=== PATIENT | male | born 1935 | race Caucasian/White ===

== ENCOUNTER 2016-08-23 11:31 | Inpatient (IN) | payer MEDICARE, BC ==
[~2016-08-23] VITALS: Ht 172.7 cm; Wt 110.8 kg
[~2016-08-23 11:31] MED LIST: ARICEPT10 MG PO; ASPIRIN 32325 MG/TA1 PO; BUSPAR DIVIDOSE15 MG PO; COLACE 100100 MG/CAP PO; CYMBALTA 60MG60 MG PO; DESYREL 50MG50 MG PO; GLUCOPHAGE500 MG/TAB PO; KLONOPIN 0.5MG0.5 MG PO; LOPRESSOR 225 MG/TAB PO; MICARDIS20 MG PO; MINIPRESS 1M1 MG/CAP PO; NAMENDA 10MG TA10 MG PO; NAPROSYN500 MG PO; NITROSTAT0.4 MG/TAB SL; NORCO 325 MG-7.1 TAB PO; PRILOSEC10 MG PO; VESICARE 5MG5 MG PO; WELLBUTRIN 75MG75 MG PO; ZOCOR 40MG40 MG PO
[2016-08-23 12:13] LABS: BASO # 0.1 (0.0-0.2); BASO % 0.5 % (0.0-2.0); EOS # 0.2 (0.0-0.7); EOS % 1.5 % (0-4.0); GRAN # 5.6 (1.4-6.5); GRAN % 54.9 % (42.2-75.2); HEMATOCRIT 40.4 % (42.0-52.0); HEMOGLOBIN 13.4 g/dl (13.5-18.0); LYMPH # 3.5 (1.2-3.4); MEAN CELL VOLUME 91 fl (80.0-100.0); MEAN CORPUSCULAR HEMOGLOBIN 30 pg (27.0-31.0); MEAN CORPUSCULAR HGB CONC 33 g/dl (33.0-37.0); MEAN PLATELET VOLUME 8.9 fl (7.4-10.4); MONO # 0.9 (0.1-0.6); MONO % 8.6 % (1.7-9.3); PLATELET COUNT 203 K/mm3 (130-400); RED BLOOD COUNT 4.42 M/mm3 (4.20-5.60); REDCELL DISTRIBUTION WIDTH-CV 13.3 % (11.5-14.5); WHITE BLOOD COUNT 10.2 K/mm3 (4.8-10.8)
[2016-08-23 12:17] LABS: ADJUSTED CALCIUM 9.2 mg/dL (8.4-10.2); ALANINE AMINOTRANSFERASE 26 U/L (21-72); ALBUMIN 4.1 gm/dL (3.5-5.0); ALKALINE PHOSPHATASE 68 U/L (50-136); ANION GAP 12 mmol/L (7-16); BILIRUBIN,TOTAL 0.6 mg/dL (0.0-1.0); BLOOD UREA NITROGEN 12 mg/dL (9-20); CALCIUM 9.3 mg/dL (8.4-10.2); CARBON DIOXIDE 25 mmol/L (22-30); CHLORIDE 101 mmol/L (98-107); CREATINE KINASE 55 U/L (55-170); GLUCOSE 100 mg/dL (74-106); LIPASE 295 U/L (23-300); POTASSIUM 4.3 mmol/L (3.4-5.0); SODIUM 138 mmol/L (137-145); TOTAL PROTEIN 7.1 gm/dL (6.4-8.2)
[2016-08-23 12:30] LABS: B-TYPE NATRIURETIC PEPTIDE 68 pg/mL (0-450)
[2016-08-23 12:36] LABS: TROPONIN-I < 0.012 ng/mL (0.000-0.034)
[2016-08-23 12:42] LABS: INR 0.9 (0.8-3.0)
[2016-08-23] MEDS ORDERED: GLUCOPHAGE500 MG/TAB PO (14:02)
[2016-08-23] MEDS ORDERED: FLOMAX 0.40.4 MG/CAP PO (15:15)
[2016-08-23 16:54] VITALS: BP 124/65; PULSE 71; TEMP 98.1
[2016-08-23 19:34] VITALS: BP 115/64; PULSE 76; TEMP 98.4
[2016-08-23 19:59] LABS: CHOLESTEROL 115 mg/dL (120-200); HDL CHOLESTEROL 37 mg/dL; LDL CHOLESTEROL 53 mg/dL; TRIGLYCERIDE 123 mg/dL
[2016-08-24] VITALS (246 sets, daily range): BP systolic 92–155; BP diastolic 51–92; PULSE 62–82; TEMP 97.4–98.5; O2SAT 92–97
[2016-08-24 08:02] LABS: BASO % 0.7 % (0.0-2.0); EOS # 0.2 (0.0-0.7); EOS % 2.7 % (0-4.0); GRAN # 2.8 (1.4-6.5); GRAN % 46.9 % (42.2-75.2); HEMATOCRIT 38.8 % (42.0-52.0); HEMOGLOBIN 12.6 g/dl (13.5-18.0); LYMPH # 2.3 (1.2-3.4); MEAN CELL VOLUME 93 fl (80.0-100.0); MEAN CORPUSCULAR HEMOGLOBIN 30 pg (27.0-31.0); MEAN CORPUSCULAR HGB CONC 33 g/dl (33.0-37.0); MEAN PLATELET VOLUME 9.2 fl (7.4-10.4); MONO # 0.6 (0.1-0.6); MONO % 10.4 % (1.7-9.3); PLATELET COUNT 205 K/mm3 (130-400); RED BLOOD COUNT 4.18 M/mm3 (4.20-5.60); REDCELL DISTRIBUTION WIDTH-CV 13.2 % (11.5-14.5)
[2016-08-24 08:17] LABS: ANION GAP 8 mmol/L (7-16); BLOOD UREA NITROGEN 11 mg/dL (9-20); CALCIUM 9.1 mg/dL (8.4-10.2); CARBON DIOXIDE 28 mmol/L (22-30); CHLORIDE 104 mmol/L (98-107); CREATININE, serum 1.11 mg/dL (0.66-1.25); GLUCOSE 94 mg/dL (74-106); POTASSIUM 4.5 mmol/L (3.4-5.0); SODIUM 140 mmol/L (137-145)
[2016-08-24 10:11] LABS: TROPONIN-I < 0.012 ng/mL (0.000-0.034)
[2016-08-25] VITALS (672 sets, daily range): BP systolic 73–143; BP diastolic 43–77; PULSE 56–66; TEMP 97–98.4; O2SAT 90–99
[2016-08-25 05:36] LABS: HEMATOCRIT 38.6 % (42.0-52.0); HEMOGLOBIN 12.6 g/dl (13.5-18.0); MEAN CELL VOLUME 92 fl (80.0-100.0); MEAN CORPUSCULAR HEMOGLOBIN 30 pg (27.0-31.0); MEAN CORPUSCULAR HGB CONC 33 g/dl (33.0-37.0); MEAN PLATELET VOLUME 8.5 fl (7.4-10.4); PLATELET COUNT 183 K/mm3 (130-400); RED BLOOD COUNT 4.18 M/mm3 (4.20-5.60); REDCELL DISTRIBUTION WIDTH-CV 13.2 % (11.5-14.5); WHITE BLOOD COUNT 6.4 K/mm3 (4.8-10.8)
[2016-08-25 05:50] LABS: CALCIUM 8.9 mg/dL (8.4-10.2); CREATININE, serum 0.96 mg/dL (0.66-1.25); POTASSIUM 4.8 mmol/L (3.4-5.0)
[2016-08-25] MEDS ORDERED: PLAVIX 75MG TAB75 MG PO (10:11)
== END 2016-08-25 11:44 | disposition home or self-care (01) | DRG 247 ==
LOC: COL.ER 11:31 → MEDICAL 13:47 → ICU 08-24 19:50
PROVIDERS: Emergency Medicine; Internal Medicine; Internal Medicine Interventional Cardiology
PROC: 027034Z Dilation of Coronary Artery, One Artery with Drug-eluting Intraluminal Device, Percutaneous Approach (ICD-10-PCS; principal; 2016-08-24)
PROC: B2111ZZ Fluoroscopy of Multiple Coronary Arteries using Low Osmolar Contrast (ICD-10-PCS; 2016-08-24)
PROC: B2151ZZ Fluoroscopy of Left Heart using Low Osmolar Contrast (ICD-10-PCS; 2016-08-24)
PROC: 4A023N7 Measurement of Cardiac Sampling and Pressure, Left Heart, Percutaneous Approach (ICD-10-PCS; 2016-08-24)
DX: I25.110 Atherosclerotic heart disease of native coronary artery with unstable angina pectoris (principal); I10 Essential (primary) hypertension; E11.9 Type 2 diabetes mellitus without complications; Z95.5 Presence of coronary angioplasty implant and graft; Z87.891 Personal history of nicotine dependence; G31.84 Mild cognitive impairment of uncertain or unknown etiology
CPT/HCPCS: 99222-AI; 99232-AI; 99239; C1725; C1760; C1769; C1874; C1887; C1894; C9600; J0583; J2250; J3010; J7030; Q9967

== ENCOUNTER → 2016-10-24 | Outpatient (CLI) | payer MEDICARE, BC ==
[~2016-10-24] MED LIST changes: +FLOMAX 0.40.4 MG/CAP PO; +PLAVIX 75MG TAB75 MG PO
== END ==
LOC: BHSO 13:38
DX: F33.42 Major depressive disorder, recurrent, in full remission (principal)

== ENCOUNTER → 2017-01-23 | Outpatient (CLI) | payer MEDICARE, BC | LOC: BHSO 14:17 | DX: F43.10 Post-traumatic stress disorder, unspecified (principal) ==

== ENCOUNTER → 2017-04-26 | Outpatient (CLI) | payer MEDICARE, BC | LOC: BHSO 14:53 | DX: F31.81 Bipolar II disorder (principal) ==

== ENCOUNTER → 2017-07-26 | Outpatient (CLI) | payer MEDICARE, BC | LOC: BHSO 14:04 | DX: F33.42 Major depressive disorder, recurrent, in full remission (principal) ==

== ENCOUNTER → 2017-10-17 | Outpatient (CLI) | payer MEDICARE, BC | LOC: COL.RAD 09:11 | DX: I65.23 Occlusion and stenosis of bilateral carotid arteries (principal); R41.89 Other symptoms and signs involving cognitive functions and awareness | CPT/HCPCS: Q9967 ==

== ENCOUNTER → 2017-10-25 | Outpatient (CLI) | payer MEDICARE, BC ==
[~2017-10-25] MED LIST changes: +ANTIVERT 25MG25 MG PO; +RAPAFLO8 MG PO
== END ==
LOC: BHSO 13:34
DX: F33.42 Major depressive disorder, recurrent, in full remission (principal)
CPT/HCPCS: G0463

== ENCOUNTER 2017-10-29 14:23 | Emergency (ER) | payer MEDICARE, BC ==
[~2017-10-29] VITALS: Ht 172.7 cm; Wt 115.5 kg
[~2017-10-29 14:23] MED LIST changes: -ANTIVERT 25MG25 MG PO; -RAPAFLO8 MG PO
[2017-10-29 14:29] VITALS: TEMP 98.3
[2017-10-29] MEDS ORDERED: RAPAFLO8 MG PO (15:19)
[2017-10-29 15:35] LABS: BASO % 0.4 % (0.0-2.0); EOS # 0.2 (0.0-0.7); HEMATOCRIT 41.6 % (42.0-52.0); HEMOGLOBIN 13.6 g/dl (13.5-18.0); LYMPH # 2.5 (1.2-3.4); LYMPH % 33.3 % (20.0-51.0); MEAN CELL VOLUME 94 fl (80.0-100.0); MEAN CORPUSCULAR HEMOGLOBIN 31 pg (27.0-31.0); MEAN CORPUSCULAR HGB CONC 33 g/dl (33.0-37.0); MEAN PLATELET VOLUME 8.4 fl (7.4-10.4); MONO # 0.7 (0.1-0.6); MONO % 9.9 % (1.7-9.3); PLATELET COUNT 223 K/mm3 (130-400); RED BLOOD COUNT 4.45 M/mm3 (4.20-5.60); REDCELL DISTRIBUTION WIDTH-CV 13.2 % (11.5-14.5)
[2017-10-29 15:38] VITALS: BP 135/80
[2017-10-29 15:44] LABS: ALANINE AMINOTRANSFERASE 25 U/L (21-72); ALBUMIN 4.1 gm/dL (3.5-5.0); ALKALINE PHOSPHATASE 63 U/L (50-136); ANION GAP 10 mmol/L (7-16); AST,SGOT 16 U/L (15-37); BILIRUBIN,TOTAL 0.2 mg/dL (0.0-1.0); BLOOD UREA NITROGEN 17 mg/dL (9-20); CARBON DIOXIDE 27 mmol/L (22-30); CHLORIDE 106 mmol/L (98-107); GLUCOSE 112 mg/dL (74-106); POTASSIUM 4.9 mmol/L (3.4-5.0); SODIUM 143 mmol/L (137-145); TOTAL PROTEIN 6.9 gm/dL (6.4-8.2)
[2017-10-29 16:07] LABS: TROPONIN-I < 0.012 ng/mL (0.000-0.034)
[2017-10-29] MEDS ORDERED: ANTIVERT 25MG25 MG PO (17:02)
[2017-10-29 17:16] VITALS: PULSE 77
== END 2017-10-29 17:17 | disposition home or self-care (01) ==
LOC: COL.ER 14:23
PROVIDERS: Emergency Medicine
DX: R42 Dizziness and giddiness (principal); E11.9 Type 2 diabetes mellitus without complications; I10 Essential (primary) hypertension; I25.10 Atherosclerotic heart disease of native coronary artery without angina pectoris; Z86.79 Personal history of other diseases of the circulatory system; Z95.5 Presence of coronary angioplasty implant and graft; Z98.890 Other specified postprocedural states; Z79.84 Long term (current) use of oral hypoglycemic drugs; Z79.82 Long term (current) use of aspirin

== ENCOUNTER 2018-01-22 10:59 | Day surgery (SDC) | payer MEDICARE, BC ==
[2018-01-22] VITALS (9 sets, daily range): BP systolic 96–128; BP diastolic 52–83; PULSE 68–87; TEMP 97.5–98.3
[~2018-01-22] VITALS: Ht 172.7 cm; Wt 114.1 kg
[~2018-01-22 10:59] MED LIST changes: +ANTIVERT 25MG25 MG PO; +RAPAFLO8 MG PO
[2018-01-22] MEDS ORDERED: FLOMAX 0.40.4 MG/CAP PO (12:21)
[2018-01-22] MEDS ORDERED: LOPRESSOR 225 MG/TAB PO (12:26)
[2018-01-22] MEDS ORDERED: GLUCOPHAGE1000 MG PO (12:26)
[2018-01-22] MEDS ORDERED: ARICEPT10 MG PO (12:27)
[2018-01-22] MEDS ORDERED: BUSPAR 30MG30 MG/TAB PO (12:28)
[2018-01-22] MEDS ORDERED: KLONOPIN 0.5MG0.5 MG PO (12:29)
[2018-01-22] MEDS ORDERED: MICARDIS20 MG PO (12:29)
[2018-01-22] MEDS ORDERED: MINIPRESS 1M1 MG/CAP PO (12:31)
[2018-01-22] MEDS ORDERED: CYMBALTA 60MG60 MG PO (12:32)
[2018-01-22] MEDS ORDERED: DESYREL 50MG50 MG PO (12:33)
[2018-01-22] MEDS ORDERED: ZOCOR 40MG40 MG PO (12:34)
[2018-01-22] MEDS ORDERED: NAMENDA 10MG TA10 MG PO (12:35)
[2018-01-23 03:56] VITALS: BP 109/53; PULSE 70; TEMP 98
[2018-01-23 07:35] VITALS: BP 108/52; PULSE 77; TEMP 98.9
[2018-01-23 11:34] VITALS: BP 112/70; PULSE 67; TEMP 98.6
[2018-01-23 15:34] VITALS: BP 106/67; PULSE 75; TEMP 98.2
[2018-01-23 19:17] VITALS: BP 135/61; PULSE 80; TEMP 98.1
[2018-01-24 00:07] VITALS: BP 130/62; PULSE 82; TEMP 98.4
[2018-01-24 03:38] VITALS: BP 123/58; PULSE 70; TEMP 98.2
[2018-01-24 08:26] VITALS: BP 108/52; PULSE 93; TEMP 99.2
== END 2018-01-24 10:28 | disposition home or self-care (01) ==
LOC: SDCO 10:59 → SURG 17:00 → SDCO 01-24 10:28
DX: N40.1 Benign prostatic hyperplasia with lower urinary tract symptoms (principal); N13.8 Other obstructive and reflux uropathy; N39.43 Post-void dribbling; G47.33 Obstructive sleep apnea (adult) (pediatric); I25.10 Atherosclerotic heart disease of native coronary artery without angina pectoris; J44.9 Chronic obstructive pulmonary disease, unspecified; E11.9 Type 2 diabetes mellitus without complications; Z79.02 Long term (current) use of antithrombotics/antiplatelets; Z79.899 Other long term (current) drug therapy; Z79.82 Long term (current) use of aspirin; G30.9 Alzheimer's disease, unspecified; F02.80 Dementia in other diseases classified elsewhere, unspecified severity, without behavioral disturbance, psychotic disturbance, mood disturbance, and anxiety; Z95.5 Presence of coronary angioplasty implant and graft
CPT/HCPCS: OP; J0690; J2175; J2270; J2405; J2704; J3010; J3480

== ENCOUNTER → 2018-06-13 | Outpatient (CLI) | payer MEDICARE, BC ==
[~2018-06-13] MED LIST changes: +BUSPAR 30MG30 MG/TAB PO; +GLUCOPHAGE1000 MG PO
== END ==
LOC: BHSO 14:21
DX: F33.42 Major depressive disorder, recurrent, in full remission (principal)
CPT/HCPCS: G0463

== ENCOUNTER 2018-06-20 11:13 | Emergency (ER) | payer MEDICARE, BC ==
[~2018-06-20] VITALS: Ht 172.7 cm; Wt 115.0 kg
[2018-06-20 11:16] VITALS: TEMP 97.6
[2018-06-20 11:49] LABS: BASO % 0.4 % (0.0-2.0); EOS # 0.2 (0.0-0.7); EOS % 2.3 % (0-4.0); GRAN # 3.7 (1.4-6.5); GRAN % 51.7 % (42.2-75.2); HEMATOCRIT 42.1 % (42.0-52.0); HEMOGLOBIN 14.2 g/dl (13.5-18.0); LYMPH # 2.6 (1.2-3.4); LYMPH % 36.3 % (20.0-51.0); MEAN CELL VOLUME 91 fl (80.0-100.0); MEAN CORPUSCULAR HEMOGLOBIN 31 pg (27.0-31.0); MEAN CORPUSCULAR HGB CONC 34 g/dl (33.0-37.0); MEAN PLATELET VOLUME 9.1 fl (7.4-10.4); MONO # 0.6 (0.1-0.6); PLATELET COUNT 213 K/mm3 (130-400); RED BLOOD COUNT 4.65 M/mm3 (4.20-5.60); REDCELL DISTRIBUTION WIDTH-CV 13.4 % (11.5-14.5)
[2018-06-20 11:55] LABS: ALANINE AMINOTRANSFERASE 22 U/L (21-72); ALBUMIN 3.8 gm/dL (3.5-5.0); ALKALINE PHOSPHATASE 55 U/L (50-136); ANION GAP 8 mmol/L (7-16); AST,SGOT 15 U/L (15-37); BILIRUBIN,TOTAL 0.3 mg/dL (0.0-1.0); BLOOD UREA NITROGEN 11 mg/dL (9-20); CALCIUM 8.8 mg/dL (8.4-10.2); CARBON DIOXIDE 24 mmol/L (22-30); CHLORIDE 107 mmol/L (98-107); CREATININE, serum 0.95 mg/dL (0.66-1.25); GLUCOSE 111 mg/dL (74-106); LIPASE 184 U/L (23-300); POTASSIUM 4.6 mmol/L (3.4-5.0); SODIUM 139 mmol/L (137-145); TOTAL PROTEIN 6.7 gm/dL (6.4-8.2)
[2018-06-20 12:02] LABS: C-REACTIVE PROTEIN < 0.5 mg/dL (0.0-0.9)
[2018-06-20 12:14] LABS: TROPONIN-I < 0.012 ng/mL (0.000-0.034)
[2018-06-20] MEDS ORDERED: DOXYCYCLINE 10100 MG PO ×2 (15:08→15:48)
[2018-06-20 15:13] LABS: COLLECTION METHOD CLEAN CATCH
[2018-06-20 15:29] LABS: MUCOUS Present /lpf; PH 6 (5-8); SQUAMOUS EPITHELIAL 0-2 /hpf; URINE APPEARANCE Clear; URINE BACTERIA None Seen /hpf; URINE BILIRUBIN Negative (NEGATIVE); URINE BLOOD Negative (NEGATIVE); URINE COLOR Yellow; URINE GLUCOSE Negative (NEGATIVE); URINE KETONE Negative (NEGATIVE); URINE LEUKOCYTE ESTERASE Negative (NEGATIVE); URINE NITRATE Negative (NEGATIVE); URINE PROTEIN(semi-quant) Negative (NEGATIVE); URINE RBC 0-2 /hpf; URINE UROBILINOGEN Negative (NEGATIVE)
[2018-06-20 15:50] VITALS: BP 143/87; PULSE 61
== END 2018-06-20 15:50 | disposition home or self-care (01) ==
LOC: COL.ER 11:13
PROVIDERS: Emergency Medicine
DX: R05 Cough (principal); R10.32 Left lower quadrant pain; E11.9 Type 2 diabetes mellitus without complications; I10 Essential (primary) hypertension; F03.90 Unspecified dementia, unspecified severity, without behavioral disturbance, psychotic disturbance, mood disturbance, and anxiety; I25.10 Atherosclerotic heart disease of native coronary artery without angina pectoris; Z98.890 Other specified postprocedural states; Z79.84 Long term (current) use of oral hypoglycemic drugs
CPT/HCPCS: J7040; Q9967

== ENCOUNTER 2018-10-31 09:53 | Observation (INO) | payer MEDICARE, BC ==
[2018-10-31] VITALS (12 sets, daily range): BP systolic 140–173; BP diastolic 67–98; PULSE 61–79; TEMP 97.5–98.8
[~2018-10-31] VITALS: Ht 172.7 cm; Wt 111.1 kg
[~2018-10-31 09:53] MED LIST changes: -BUSPAR 30MG30 MG/TAB PO; +DOXYCYCLINE 10100 MG PO; -GLUCOPHAGE1000 MG PO; +MICARDIS40 MG PO
[2018-10-31 10:20] LABS: BASO % 0.4 % (0.0-2.0); EOS # 0.2 (0.0-0.7); EOS % 2.1 % (0-4.0); GRAN # 4.4 (1.4-6.5); GRAN % 63.5 % (42.2-75.2); HEMATOCRIT 42.3 % (42.0-52.0); HEMOGLOBIN 13.9 g/dl (13.5-18.0); LYMPH # 1.7 (1.2-3.4); LYMPH % 24.1 % (20.0-51.0); MEAN CELL VOLUME 92 fl (80.0-100.0); MEAN CORPUSCULAR HEMOGLOBIN 30 pg (27.0-31.0); MEAN CORPUSCULAR HGB CONC 33 g/dl (33.0-37.0); MEAN PLATELET VOLUME 8.8 fl (7.4-10.4); MONO # 0.7 (0.1-0.6); MONO % 9.6 % (1.7-9.3); PLATELET COUNT 204 K/mm3 (130-400); REDCELL DISTRIBUTION WIDTH-CV 13.1 % (11.5-14.5)
[2018-10-31] MEDS ORDERED: ASPIRIN 32325 MG/TAB PO (10:22)
[2018-10-31] MEDS ORDERED: DULCOLAX STOOL100 MG PO (10:24)
[2018-10-31] MEDS ORDERED: VESICARE 5MG5 MG PO (10:26)
[2018-10-31 10:30] LABS: ALANINE AMINOTRANSFERASE 11 U/L (21-72); ALBUMIN 3.9 gm/dL (3.5-5.0); ALKALINE PHOSPHATASE 69 U/L (50-136); ANION GAP 9 mmol/L (7-16); AST,SGOT 13 U/L (15-37); BILIRUBIN,TOTAL 0.2 mg/dL (0.0-1.0); BLOOD UREA NITROGEN 14 mg/dL (9-20); CALCIUM 8.8 mg/dL (8.4-10.2); CARBON DIOXIDE 28 mmol/L (22-30); CHLORIDE 103 mmol/L (98-107); CREATININE, serum 0.88 mg/dL (0.66-1.25); GLUCOSE 175 mg/dL (74-106); LIPASE 442 U/L (23-300); POTASSIUM 3.9 mmol/L (3.4-5.0); SODIUM 139 mmol/L (137-145); TOTAL PROTEIN 6.7 gm/dL (6.4-8.2)
[2018-10-31 10:46] LABS: INR 0.9 (0.8-3.0); PROTHROMBIN TIME 10.1 SECONDS (9.7-12.8)
[2018-10-31 11:22] LABS: TROPONIN-I < 0.012 ng/mL (0.000-0.035)
--- NOTE | 2018-10-31 14:39 | NUR ---
Patient is getting ready to go for a heart catheterization. Consent signed and on chart. The nurse from the [facility] is here getting patient ready and is going to be taking the patient. Patient has no family at bedside. IVF's to straight tubing at 30ml/hr. No other changes at this time.
[2018-10-31] MEDS ORDERED: NORCO 325 MG-7.1 TAB PO (14:49)
--- NOTE | 2018-10-31 15:14 | NUR ---
ALL MEDICATIONS GIVEN WITH VERBAL ORDER AND READBACK WITH MD. SEE MERGE FOR ALL MEDICATION ADMIN TIMES. SEE MERGE FOR ALL RASS ASSESSMENTS DURING AND POST PROCEDURE. CHEST PAIN AT A 9/10.
--- NOTE | 2018-10-31 16:30 | NUR ---
Patient is back from his heart cath. He is alert and oriented. Right groin site is C/D/I, skin is soft and supple. No edema noted. CMS intact to RLE. Explained that he has to lay flat for 2 hours. He continues to have to pain to his left chest and left upper quadrant. He did not want anything for pain at this time. Denies nausea. Hospitalist is seeing him at this time. No other changes at this time. Call light within reach.
--- NOTE | 2018-10-31 18:30 | NUR ---
Patient started to have increased pain to abdomen and complaints of a headache. [place] given, it is his home dose so he did not thinkg it would be enough. Denies nausea. Called for a dose of additional pain medication as well. 1mg of morhpine given as well. Patient stated is also very hungry and thought that might be causing the headache. No pain to right groin site. Dressing is C/D/I, skin is soft and supple. CMS intact to RLE. Patients flat time is done. No other changes at this time. Call light within reach.
--- NOTE | 2018-10-31 19:30 | NUR ---
Shift assessment complete. Pt resting in bed, awake, a&o, cooperative c cares. Pt reports continued pain to L back/shoulder et L chest, rated "5/10" at this time, reports recent MS admin "helped"; will continue to monitor. Heart cath site to R groin noted, s edema/drainage or other complication; gauze/tegaderm dressing C/D/I. INT patent. Tele in place. Pt denies further needs at this time. Call light in reach, bed alarm on. Will monitor.
[2018-11-01 04:44] VITALS: BP 142/73; PULSE 69; TEMP 98.1
[2018-11-01 07:15] LABS: HEMATOCRIT 41.3 % (42.0-52.0); HEMOGLOBIN 13.5 g/dl (13.5-18.0); MEAN CELL VOLUME 91 fl (80.0-100.0); MEAN CORPUSCULAR HEMOGLOBIN 30 pg (27.0-31.0); MEAN CORPUSCULAR HGB CONC 33 g/dl (33.0-37.0); MEAN PLATELET VOLUME 9.1 fl (7.4-10.4); PLATELET COUNT 217 K/mm3 (130-400); RED BLOOD COUNT 4.54 M/mm3 (4.20-5.60); REDCELL DISTRIBUTION WIDTH-CV 13.2 % (11.5-14.5)
[2018-11-01 07:18] LABS: ALBUMIN 3.6 gm/dL (3.5-5.0); BILIRUBIN,TOTAL 0.3 mg/dL (0.0-1.0); CALCIUM 8.7 mg/dL (8.4-10.2); CREATININE, serum 0.84 mg/dL (0.66-1.25); POTASSIUM 4.1 mmol/L (3.4-5.0); TOTAL PROTEIN 6.3 gm/dL (6.4-8.2)
--- NOTE | 2018-11-01 07:22 | NUR ---
Pt resting in bed, condition unchanged. Pt has had continued c/o L back et chest pain this shift, rated 3/10 at best to 9/10 at worst. Pain moderately well controlled c PRN pain meds upon pt request. Pt has otherwise rested int c very few needs this shift. Denies needs at this time. Call light in reach. Bedside shift report given to Immanuel NAM to assume pt cares.
--- NOTE | 2018-11-01 08:00 | NUR ---
Assessment completed, alert/oriented, vital signs stable, continues to report moderate to severe intermittent left sided chest and back pain, [place] [facility] and Morphine being used with some releif noted, he reports the pain comes and goes and is somtimes brought on by position changes and other times comes on when he is just laying there, heart RRR/ SR on tele, distal pulses are palpable, lungs CTA/ no resp.difficulty noted, right groin/ femoral cath access site is soft with no signs of hematoma or bleeding, he is ordering himself breakfast, denies other needs at this time
[2018-11-01 08:51] VITALS: BP 136/60; BP 163/87; PULSE 100; PULSE 74; TEMP 97.5; TEMP 98
[2018-11-01 12:08] VITALS: BP 138/85; PULSE 72; TEMP 97.8
[2018-11-01] MEDS ORDERED: GLUCOPHAGE500 MG/TAB PO (12:26)
[2018-11-01 12:33] VITALS: PULSE 70
--- NOTE | 2018-11-01 13:55 | NUR ---
SW met with patient and nephew about discharge. Patient lives at home alone but his nephew visits everyday and is able to stay with patient if needed. Patient's PCP is Dr Jackson and he obtains prescriptions from [facility] in [place]. Patient does not use any home health services or DME. Patient has a DPOA in EMR. SW does not anticipate any discharge needs.
[2018-11-01] MEDS ORDERED: PROTONIX 40MG T40 MG PO (17:04)
--- NOTE | 2018-11-01 17:46 | NUR ---
discharge instructions reviewed with the patient, expalined CT chest was negative for PE, instructed to follow up with PCP and Cardiology as scheuled, IV and tele removed, leaving with a friend, script for Protonix sent to pharmacy and medication education given, I personally escorted them out the door
== END 2018-11-01 17:51 | disposition home or self-care (01) ==
LOC: COL.ER 09:53 → MEDICAL 12:39
PROVIDERS: Emergency Medicine; Nurse Practitioner Family; ADMIT Hospitalist
DX: I25.10 Atherosclerotic heart disease of native coronary artery without angina pectoris (principal); M89.8X1 Other specified disorders of bone, shoulder; E11.9 Type 2 diabetes mellitus without complications; I10 Essential (primary) hypertension; N40.0 Benign prostatic hyperplasia without lower urinary tract symptoms; F32.9 Major depressive disorder, single episode, unspecified; I73.9 Peripheral vascular disease, unspecified; G47.33 Obstructive sleep apnea (adult) (pediatric); Z79.82 Long term (current) use of aspirin; Z79.84 Long term (current) use of oral hypoglycemic drugs; Z87.891 Personal history of nicotine dependence; Z86.73 Personal history of transient ischemic attack (TIA), and cerebral infarction without residual deficits; G31.84 Mild cognitive impairment of uncertain or unknown etiology; Z82.49 Family history of ischemic heart disease and other diseases of the circulatory system
CPT/HCPCS: C1760; C1894; G0378; J1644; J2250; J2270; J3010; J7030; Q9967

== ENCOUNTER → 2018-12-19 | Outpatient (CLI) | payer MEDICARE, BC ==
[~2018-12-19] MED LIST changes: +ASPIRIN 32325 MG/TAB PO; +DULCOLAX STOOL100 MG PO; +PROTONIX 40MG T40 MG PO
== END ==
LOC: COL.RAD 07:30
DX: Z01.812 Encounter for preprocedural laboratory examination (principal); E11.69 Type 2 diabetes mellitus with other specified complication; I71.4 Abdominal aortic aneurysm, without rupture; M46.96 Unspecified inflammatory spondylopathy, lumbar region; M51.36 Other intervertebral disc degeneration, lumbar region; N20.0 Calculus of kidney; N28.1 Cyst of kidney, acquired; Z98.1 Arthrodesis status
CPT/HCPCS: Q9967

== ENCOUNTER → 2018-12-19 | Outpatient (CLI) | payer MEDICARE, BC | LOC: BHSO 13:07 | DX: F43.10 Post-traumatic stress disorder, unspecified (principal) | CPT/HCPCS: G0463 ==

== ENCOUNTER → 2018-12-22 | Outpatient (CLI) | payer MEDICARE, BC | LOC: COL.RAD 10:00 | DX: K22.8 Other specified diseases of esophagus (principal) ==

== ENCOUNTER → 2019-05-13 | Outpatient (CLI) | payer MEDICARE, BC | LOC: COL.VAS 12:31 | DX: I25.118 Atherosclerotic heart disease of native coronary artery with other forms of angina pectoris (principal); R79.89 Other specified abnormal findings of blood chemistry ==

== ENCOUNTER → 2019-06-19 | Outpatient (CLI) | payer MEDICARE, BC | LOC: BHSO 13:25 | DX: F43.10 Post-traumatic stress disorder, unspecified (principal) | CPT/HCPCS: G0463 ==

== ENCOUNTER → 2020-04-15 | Outpatient (CLI) | payer MEDICARE, BC ==
[~2020-04-15] MED LIST changes: +COREG12.5 MG PO; +PERCOCET 325 MG1 TA2 PO; +SPIRIVA RE2.5 MCG/Ac IH
== END ==
LOC: COL.RAD 11:49
DX: G31.9 Degenerative disease of nervous system, unspecified (principal); J32.9 Chronic sinusitis, unspecified; I65.23 Occlusion and stenosis of bilateral carotid arteries
CPT/HCPCS: A9585

== ENCOUNTER → 2020-06-09 | Outpatient (CLI) | payer MEDICARE, BC | LOC: BHSO 14:24 | DX: F43.10 Post-traumatic stress disorder, unspecified (principal) | CPT/HCPCS: G0463 ==

== ENCOUNTER 2021-03-28 02:18 | Emergency (ER) | payer MEDICARE, BC ==
[~2021-03-28] VITALS: Ht 172.7 cm; Wt 96.4 kg
[2021-03-28 02:27] VITALS: TEMP 98.3
[2021-03-28 03:16] LABS: BASO % 0.3 % (0.0-2.0); EOS # 0.1 (0.0-0.7); EOS % 1.5 % (0-4.0); GRAN % 62.5 % (42.2-75.2); HEMATOCRIT 40.6 % (42.0-52.0); HEMOGLOBIN 13.1 g/dl (13.5-18.0); LYMPH # 2.4 (1.2-3.4); LYMPH % 25.2 % (20.0-51.0); MEAN CELL VOLUME 94 fl (80.0-100.0); MEAN CORPUSCULAR HEMOGLOBIN 31 pg (27.0-31.0); MEAN CORPUSCULAR HGB CONC 32 g/dl (33.0-37.0); MEAN PLATELET VOLUME 8.8 fl (7.4-10.4); PLATELET COUNT 208 K/mm3 (130-400)
[2021-03-28 03:28] LABS: ALANINE AMINOTRANSFERASE 10 U/L (4-49); ALBUMIN 3.5 gm/dL (3.5-5.0); ALKALINE PHOSPHATASE 56 U/L (50-136); ANION GAP 9 mmol/L (7-16); AST,SGOT 15 U/L (15-37); BILIRUBIN,TOTAL < 0.1 mg/dL (0.0-1.0); BLOOD UREA NITROGEN 14 mg/dL (9-20); CALCIUM 8.8 mg/dL (8.4-10.2); CARBON DIOXIDE 25 mmol/L (22-30); CHLORIDE 104 mmol/L (98-107); CREATININE, serum 0.79 (0.66-1.25); GLUCOSE 139 mg/dL (74-106); POTASSIUM 4.2 mmol/L (3.4-5.0); SODIUM 138 mmol/L (137-145); TOTAL PROTEIN 6.3 gm/dL (6.4-8.2)
[2021-03-28] MEDS ORDERED: NORCO 325 MG-51 TAB PO (03:47)
[2021-03-28 04:05] VITALS: BP 121/81; PULSE 74
== END 2021-03-28 04:05 | disposition home or self-care (01) ==
LOC: COL.ER 02:18
PROVIDERS: Personal Emergency Response Attendant
DX: S09.90XA Unspecified injury of head, initial encounter (principal); I25.10 Atherosclerotic heart disease of native coronary artery without angina pectoris; E11.9 Type 2 diabetes mellitus without complications; I10 Essential (primary) hypertension; Z79.02 Long term (current) use of antithrombotics/antiplatelets; W06.XXXA Fall from bed, initial encounter; Z79.899 Other long term (current) drug therapy
CPT/HCPCS: J1885

== ENCOUNTER 2023-06-07 08:06 | Day surgery (SDC) | payer MEDICARE, BC ==
[~2023-06-07] VITALS: Ht 180.3 cm; Wt 112.0 kg
[~2023-06-07 08:06] MED LIST changes: +NORCO 325 MG-51 TAB PO
[2023-06-07] MEDS ORDERED: PROTONIX 40MG T40 MG PO (08:49)
[2023-06-07] MEDS ORDERED: SENNA-S 50 MG-81 TAB PO (08:51)
[2023-06-07 10:00] VITALS: BP 121/76; PULSE 85; TEMP 98.4
--- NOTE | 2023-06-07 10:00 | NUR ---
1000 PATIENT RETURNS TO ROOM 1 VIA CART. PATIENT IS ALERT AND ORIENTED. PATIENT AMBULATES TO RECLINER WITH THE ASSISTANCE OF 2 NURSES. RESPIRATIOBS EVEN AND UNLABORED, ON ROOM AIR. VITAL SIGNS OBTAINED. PATIENT REQUESTED APPLE JUICE AND A MUFFIN. NO DIFFICULTIES SWALLOWING, TOLERATED WELL. 1020 THIS NURSE DISCONTINUED IV FROM RIGHT FOREARM WITH NO DIFFICULTIES. IV CATHETER INTACT. 1025 THIS NURSE REVIEWED DISCHARGE INSTRUCTIONS WITH PATIENT. PATIENT VERBALIZED UNDERSTANDING. 1043 DOCTOR IN ROOM TO SPEAK WITH PATIENT. 1045 PATIENT DISCHARGED FROM UNIT VIA WHEELCHAIR IN STABLE CONDITION.
[2023-06-07 10:15] VITALS: BP 124/80; PULSE 83
--- NOTE | 2023-06-07 14:28 | NUR ---
0830 PT TO BAY 1 WITH USE OF WALKER, BREATHING EVEN AND UNLABORED. PT IS ALERT AND ORIENTED. CONSENTS REVIEWED AND SIGNED BY PT. IV ESTABLISHED. LR INFUSING VIA GRAVITY AT K[facility]. CALL LIGHT IN REACH. WARM BLANKET PROVIDED.
== END 2023-06-07 10:45 | disposition home or self-care (01) ==
LOC: SDCO 08:06
DX: K22.2 Esophageal obstruction (principal); K22.0 Achalasia of cardia; K22.89 Other specified disease of esophagus; E66.9 Obesity, unspecified; G47.33 Obstructive sleep apnea (adult) (pediatric); Z87.891 Personal history of nicotine dependence; Z68.39 Body mass index [BMI] 39.0-39.9, adult
CPT/HCPCS: C1726; J0585; J2704; J7120